=== PATIENT | male | born 1955 | race Caucasian/White ===

== ENCOUNTER 2021-08-18 14:33 | Inpatient (IN) ==
[2021-08-18 15:18] LABS: Basophils % 0.5 % (0.0-0.8); Eosinophils # 0.1 10*3/uL (0.0-0.87); Eosinophils % 1.2 % (0.00-10.9); Hematocrit 28.5 VOL% (42.0-52.0); Hemoglobin 8.4 GM/DL (14.0-18.0); Immature Granulocytes % 0.8 %; Immature Granulocytes Absolute 0.05 #; Lymphocytes # 0.8 10*3/uL (1.4-4.0); Lymphocytes % 13.2 % (21.2-54.2); Mean Corpuscular HGB Conc 29.5 GM/DL (32-36); Mean Corpuscular Volume 107.1 FL (87-102); Mean Platelet Volume 11.2 FL (9.6-12.0); Monocytes % 8.7 % (1.7-12.7); Neutrophils % 75.6 % (38.7-73.9); Platelet Count 312 T/CUMM (130-400); Red Blood Count 2.66 MC/CUMM (3.8-5.5); Red Cell Distribution Width 15.1 % (9.3-17.3)
[2021-08-18 15:55] LABS: Albumin 3.5 G/DL (3.4-5.0); Bilirubin,Total 0.4 MG/DL (0.20-1.00); Calcium 8.6 MG/DL (8.5-10.1); Osmolality,Calculated 311.1 MOS/KG (273-304); Total Protein 7.3 G/DL (6.4-8.2)
[2021-08-18] MEDS ORDERED: DEXTROSE 50% 25 GM/50 ML VIAL IV STA (16:00)
[2021-08-18] MEDS ORDERED: INSULIN REGULAR 100 UNIT/ML IV STA (16:00)
[2021-08-18] MEDS ORDERED: CALCIUM CHLORIDE 1,000 MG/10 ML SYRINGE IV STA (16:01)
[2021-08-18] MEDS ORDERED: SODIUM BICARBONATE 50 MEQ/50 ML VIAL IV STA (16:01)
[2021-08-18] MEDS ORDERED: DEXTROSE 50% 25 GM/50 ML SYRINGE IV ONE (16:05)
[2021-08-18] MEDS ORDERED: ONDANSETRON 4 MG/2 ML VIAL IV PRN (16:14)
[2021-08-18] MEDS ORDERED: ACETAMINOPHEN 325 MG TABLET PO PRN (16:14)
[2021-08-18 16:15] LABS: Arterial Base Excess iSTAT -9 MMOL/L (-2.5-2.5); Arterial Bicarbonate iSTAT 18.2 MMOL/L (20-26); Arterial O2 Saturation iSTAT 43 % (95-100); Arterial PCO2 iSTAT 45 MM HG (35-48); Arterial PO2 iSTAT 29 MM HG (80-95); Arterial Total CO2 iSTAT 20 MMO/L (23-27); Arterial pH iSTAT 7.211 (7.35-7.45)
[2021-08-18 16:15] LABS: Arterial Base Excess iSTAT -9 MMOL/L (-2.5-2.5); Arterial Bicarbonate iSTAT 17.9 MMOL/L (20-26); Arterial O2 Saturation iSTAT 51 % (95-100); Arterial PCO2 iSTAT 41 MM HG (35-48); Arterial PO2 iSTAT 32 MM HG (80-95); Arterial Total CO2 iSTAT 19 MMO/L (23-27); Arterial pH iSTAT 7.244 (7.35-7.45)
[2021-08-18 16:15] LABS: Arterial Base Excess iSTAT -10 MMOL/L (-2.5-2.5); Arterial Bicarbonate iSTAT 16.1 MMOL/L (20-26); Arterial O2 Saturation iSTAT 94 % (95-100); Arterial PCO2 iSTAT 37 MM HG (35-48); Arterial PO2 iSTAT 81 MM HG (80-95); Arterial Total CO2 iSTAT 17 MMO/L (23-27); Arterial pH iSTAT 7.243 (7.35-7.45)
[2021-08-18] MEDS ORDERED: SODIUM CHLORIDE 0.9% 1,000 ML IV STA (16:19)
[2021-08-18] MEDS ORDERED: SODIUM CHLORIDE 0.9% 1,000 ML IV SCH (16:30)
[2021-08-18] MEDS ORDERED: SODIUM POLYSTYRENE SULFATE 15 GM/60 ML BOTTLE PO SCH (16:30)
[2021-08-18] MEDS ORDERED: HALOPERIDOL 5 MG/ML AMP ONE (16:37)
[2021-08-18 16:47] LABS: Uric Acid 7.2 MG/DL (3.5-7.2)
[2021-08-18] MEDS ORDERED: HALOPERIDOL 5 MG/ML AMP IM STA (17:12)
[2021-08-18] MEDS: SODIUM POLYSTYRENE SULFATE 15 GM/60 ML BOTTLE PO SCH ×2 (17:31→22:16)
[2021-08-18] MEDS ORDERED: hydrALAZINE 20 MG/1 ML VIAL IV STA (17:35)
[2021-08-18] MEDS ORDERED: hydrALAZINE 20 MG/1 ML VIAL ONE (17:35)
[2021-08-18] MEDS: ENOXAPARIN 30 MG/0.3 ML SYRINGE SUBCUT SCH (17:39)
[2021-08-18 18:06] LABS: RBC,Urine <1 /HPF (0-4)
[2021-08-18 18:07] LABS: Bilirubin,Urine Negative (Negative); Blood, Urine Small mg/dL (Negative); Glucose,Urine (UA) Negative (Negative); Ketones,Urine Negative (Negative); Nitrite,Urine Negative (Negative); Protein,Urine 1+ mg/dL (Negative); Urine Appearance Clear (Clear); Urine Color Yellow (Yellow); Urine Urobilinogen 0.2 eU/dL (<2.0)
[2021-08-18] MEDS: SODIUM BICARB INJ 100 MEQ in DEXTROSE 5% 1,000 ML IV SCH (18:20)
[2021-08-18 18:43] LABS: Calcium 9.2 MG/DL (8.5-10.1); Osmolality,Calculated 315.6 MOS/KG (273-304)
[2021-08-18 18:48] LABS: Potassium 6.2 MMOL/L (3.5-5.1)
[2021-08-18] MEDS ORDERED: MAGNESIUM SULF RIDER 4 GM/100 ML PREMIX IV PRN (20:33)
[2021-08-18] MEDS ORDERED: SODIUM ZIRCONIUM CYCLOSILICATE 10 GM PACK PO SCH (21:00)
[2021-08-18] MEDS: MAGNESIUM SULF RIDER 2 GM/50 ML PREMIX IV PRN (22:17)
[2021-08-19] MEDS: MAGNESIUM SULF RIDER 2 GM/50 ML PREMIX IV PRN (00:17)
[2021-08-19] MEDS: SODIUM BICARB INJ 100 MEQ in DEXTROSE 5% 1,000 ML IV SCH (01:34)
[2021-08-19 03:59] LABS: Basophils % 0.4 % (0.0-0.8); Eosinophils # 0.1 10*3/uL (0.0-0.87); Eosinophils % 0.8 % (0.00-10.9); Hematocrit 24.7 VOL% (42.0-52.0); Hemoglobin 7.7 GM/DL (14.0-18.0); Immature Granulocytes % 0.4 %; Immature Granulocytes Absolute 0.03 #; Lymphocytes # 0.9 10*3/uL (1.4-4.0); Mean Corpuscular HGB Conc 31.2 GM/DL (32-36); Mean Corpuscular Volume 102.1 FL (87-102); Mean Platelet Volume 10.9 FL (9.6-12.0); Monocytes % 9.2 % (1.7-12.7); Neutrophils % 78.2 % (38.7-73.9); Platelet Count 281 T/CUMM (130-400); Red Blood Count 2.42 MC/CUMM (3.8-5.5); Red Cell Distribution Width 15.2 % (9.3-17.3); White Blood Count 7.7 T/CUMM (4-12)
[2021-08-19 04:24] LABS: Calcium 9.1 MG/DL (8.5-10.1); Osmolality,Calculated 314.7 MOS/KG (273-304); Potassium 4.8 MMOL/L (3.5-5.1)
[2021-08-19 04:36] LABS: Folate 6.4 NG/ML (5.38-24.0)
[2021-08-19] MEDS: SODIUM POLYSTYRENE SULFATE 15 GM/60 ML BOTTLE PO SCH (04:43)
[2021-08-19 04:54] LABS: Free T4 (Free Thyroxine) 0.84 NG/DL (0.76-1.46); Thyroid Stimulating Hormone 3.86 uIU/ml (0.358-3.74)
[2021-08-19] MEDS: DEXTROSE 5% NACL 0.45% 1,000 ML IV SCH ×2 (08:49→17:06)
[2021-08-19] MEDS: PANTOPRAZOLE 40 MG TABLET PO SCH (08:59)
[2021-08-19] MEDS: CARBIDOPA/LEVODOPA 10-100 MG TABLET PO SCH ×2 (14:24→21:50)
[2021-08-19] MEDS: ENOXAPARIN 30 MG/0.3 ML SYRINGE SUBCUT SCH (17:06)
[2021-08-20] MEDS: DEXTROSE 5% NACL 0.45% 1,000 ML IV SCH (02:00)
[2021-08-20 05:42] LABS: Basophils % 0.6 % (0.0-0.8); Eosinophils # 0.1 10*3/uL (0.0-0.87); Eosinophils % 1.7 % (0.00-10.9); Hematocrit 29.2 VOL% (42.0-52.0); Hemoglobin 9.3 GM/DL (14.0-18.0); Immature Granulocytes % 0.3 %; Immature Granulocytes Absolute 0.02 #; Lymphocytes # 1.1 10*3/uL (1.4-4.0); Lymphocytes % 16.5 % (21.2-54.2); Mean Corpuscular HGB Conc 31.8 GM/DL (32-36); Mean Platelet Volume 11.3 FL (9.6-12.0); Monocytes % 11.4 % (1.7-12.7); Neutrophils % 69.5 % (38.7-73.9); Platelet Count 278 T/CUMM (130-400); Red Blood Count 2.95 MC/CUMM (3.8-5.5); Red Cell Distribution Width 14.6 % (9.3-17.3); White Blood Count 6.6 T/CUMM (4-12)
[2021-08-20 05:57] LABS: Albumin 3.3 G/DL (3.4-5.0); Calcium 8.2 MG/DL (8.5-10.1); Potassium 3.6 MMOL/L (3.5-5.1)
[2021-08-20 05:59] LABS: Calcium 8.3 MG/DL (8.5-10.1); Osmolality,Calculated 301.1 MOS/KG (273-304); Potassium 3.4 MMOL/L (3.5-5.1)
[2021-08-20] MEDS: DEXT 5% LACT RING KCL 20 MEQ 20 MEQ/1,000 ML BAG IV SCH ×2 (08:50→17:36)
[2021-08-20] MEDS: CARBIDOPA/LEVODOPA 10-100 MG TABLET PO SCH ×3 (09:06→21:31)
[2021-08-20] MEDS: TAMSULOSIN 0.4 MG CAPSULE PO SCH (09:06)
[2021-08-20] MEDS: FENOFIBRATE 160 MG TABLET PO SCH (09:06)
[2021-08-20] MEDS: PANTOPRAZOLE 40 MG TABLET PO SCH (09:06)
[2021-08-20] MEDS: LEVOFLOXACIN 500 MG TABLET PO SCH (09:11)
[2021-08-20] MEDS: amLODIPine 5 MG TABLET PO SCH (14:52)
[2021-08-20] MEDS ORDERED: hydrALAZINE 20 MG/1 ML VIAL IV PRN (16:13)
[2021-08-20] MEDS: ENOXAPARIN 30 MG/0.3 ML SYRINGE SUBCUT SCH (17:35)
[2021-08-21] MEDS: DEXT 5% LACT RING KCL 20 MEQ 20 MEQ/1,000 ML BAG IV SCH ×2 (01:40→10:23)
[2021-08-21 07:12] LABS: Albumin 3.5 G/DL (3.4-5.0); Osmolality,Calculated 297.3 MOS/KG (273-304); Potassium 3.7 MMOL/L (3.5-5.1)
[2021-08-21] MEDS: PANTOPRAZOLE 40 MG TABLET PO SCH (08:04)
[2021-08-21] MEDS: amLODIPine 5 MG TABLET PO SCH ×2 (08:04→10:28)
[2021-08-21] MEDS: TAMSULOSIN 0.4 MG CAPSULE PO SCH (08:04)
[2021-08-21] MEDS: CARBIDOPA/LEVODOPA 10-100 MG TABLET PO SCH ×3 (08:04→20:50)
[2021-08-21] MEDS: FENOFIBRATE 160 MG TABLET PO SCH (08:05)
[2021-08-21] MEDS: MEMANTINE 10 MG TABLET PO SCH ×2 (10:28→20:50)
[2021-08-21] MEDS: hydrALAZINE 25 MG TABLET PO SCH ×3 (10:28→20:50)
[2021-08-21] MEDS: VENLAFAXINE 100 MG TABLET PO SCH (16:53)
[2021-08-21] MEDS: ENOXAPARIN 30 MG/0.3 ML SYRINGE SUBCUT SCH (16:54)
[2021-08-21] MEDS: SODIUM BICARB INJ 50 MEQ in DEXTROSE 5% NACL 0.45% 1,000 ML IV SCH (19:23)
[2021-08-21] MEDS: MIRTAZAPINE 30 MG TABLET PO SCH (20:50)
[2021-08-22 06:51] LABS: Albumin 3.5 G/DL (3.4-5.0); Osmolality,Calculated 291.4 MOS/KG (273-304); Potassium 3.8 MMOL/L (3.5-5.1)
[2021-08-22] MEDS: SODIUM BICARB INJ 50 MEQ in DEXTROSE 5% NACL 0.45% 1,000 ML IV SCH ×2 (08:57→21:01)
[2021-08-22] MEDS: TAMSULOSIN 0.4 MG CAPSULE PO SCH (08:58)
[2021-08-22] MEDS: LEVOFLOXACIN 500 MG TABLET PO SCH (08:58)
[2021-08-22] MEDS: CARBIDOPA/LEVODOPA 10-100 MG TABLET PO SCH ×3 (08:58→21:02)
[2021-08-22] MEDS: FENOFIBRATE 160 MG TABLET PO SCH (08:58)
[2021-08-22] MEDS: amLODIPine 5 MG TABLET PO SCH (08:58)
[2021-08-22] MEDS: PANTOPRAZOLE 40 MG TABLET PO SCH (08:58)
[2021-08-22] MEDS: hydrALAZINE 25 MG TABLET PO SCH ×3 (08:58→21:03)
[2021-08-22] MEDS: MEMANTINE 10 MG TABLET PO SCH ×2 (08:58→21:03)
[2021-08-22] MEDS: carvediloL 3.125 MG TABLET PO SCH ×2 (09:00→21:03)
[2021-08-22] MEDS: VENLAFAXINE 100 MG TABLET PO SCH (09:00)
[2021-08-22] MEDS: ENOXAPARIN 30 MG/0.3 ML SYRINGE SUBCUT SCH (16:54)
[2021-08-22] MEDS: MIRTAZAPINE 30 MG TABLET PO SCH (21:02)
[2021-08-23 07:16] LABS: Basophils # 0.1 10*3/uL (0.0-0.2); Basophils % 0.6 % (0.0-0.8); Eosinophils # 0.5 10*3/uL (0.0-0.87); Eosinophils % 6.4 % (0.00-10.9); Hematocrit 29.5 VOL% (42.0-52.0); Hemoglobin 9.6 GM/DL (14.0-18.0); Immature Granulocytes % 0.5 %; Immature Granulocytes Absolute 0.04 #; Lymphocytes # 1.2 10*3/uL (1.4-4.0); Lymphocytes % 15.4 % (21.2-54.2); Mean Corpuscular HGB Conc 32.5 GM/DL (32-36); Mean Corpuscular Volume 97.4 FL (87-102); Mean Platelet Volume 11.6 FL (9.6-12.0); Monocytes % 8.1 % (1.7-12.7); Platelet Count 340 T/CUMM (130-400); Red Blood Count 3.03 MC/CUMM (3.8-5.5); Red Cell Distribution Width 14.1 % (9.3-17.3); White Blood Count 7.9 T/CUMM (4-12)
[2021-08-23 07:27] LABS: Calcium 8.8 MG/DL (8.5-10.1); Osmolality,Calculated 295.1 MOS/KG (273-304); Potassium 3.1 MMOL/L (3.5-5.1)
[2021-08-23] MEDS ORDERED: MAGNESIUM SULF RIDER 2 GM/50 ML PREMIX IV PRN (07:48)
[2021-08-23] MEDS ORDERED: POTASSIUM CHLORIDE 20 MEQ TABLET PO PRN (07:48)
[2021-08-23] MEDS ORDERED: MAGNESIUM SULF RIDER 4 GM/100 ML PREMIX IV PRN (07:48)
[2021-08-23] MEDS: SODIUM BICARB INJ 50 MEQ in DEXTROSE 5% NACL 0.45% 1,000 ML IV SCH (08:47)
[2021-08-23] MEDS: TAMSULOSIN 0.4 MG CAPSULE PO SCH (08:48)
[2021-08-23] MEDS: amLODIPine 5 MG TABLET PO SCH (08:48)
[2021-08-23] MEDS: carvediloL 3.125 MG TABLET PO SCH ×2 (08:48→21:58)
[2021-08-23] MEDS: hydrALAZINE 25 MG TABLET PO SCH ×3 (08:48→21:58)
[2021-08-23] MEDS: CARBIDOPA/LEVODOPA 10-100 MG TABLET PO SCH ×3 (08:48→21:58)
[2021-08-23] MEDS: VENLAFAXINE 100 MG TABLET PO SCH (08:48)
[2021-08-23] MEDS: PANTOPRAZOLE 40 MG TABLET PO SCH (08:48)
[2021-08-23] MEDS: FENOFIBRATE 160 MG TABLET PO SCH (08:49)
[2021-08-23] MEDS: MEMANTINE 10 MG TABLET PO SCH ×2 (08:49→21:58)
[2021-08-23] MEDS: DEXT 5% LACT RING KCL 20 MEQ 20 MEQ/1,000 ML BAG IV SCH (09:31)
[2021-08-23] MEDS: DEXTROSE 5% NACL 0.45% 1,000 ML IV SCH (13:07)
[2021-08-23] MEDS: ENOXAPARIN 30 MG/0.3 ML SYRINGE SUBCUT SCH (16:00)
[2021-08-23] MEDS: MAGNESIUM CHLORIDE 64 MG TABLET PO SCH (21:58)
[2021-08-23] MEDS: MELATONIN 3 MG TABLET PO PRN (21:58)
[2021-08-23] MEDS: MIRTAZAPINE 30 MG TABLET PO SCH (21:58)
[2021-08-23] MEDS: POTASSIUM CHLORIDE 20 MEQ TABLET PO SCH (21:59)
[2021-08-24] MEDS: DEXTROSE 5% NACL 0.45% 1,000 ML IV SCH ×2 (01:42→15:52)
[2021-08-24 05:12] LABS: Basophils # 0.1 10*3/uL (0.0-0.2); Basophils % 0.8 % (0.0-0.8); Eosinophils # 0.5 10*3/uL (0.0-0.87); Eosinophils % 5.8 % (0.00-10.9); Hemoglobin 9.5 GM/DL (14.0-18.0); Immature Granulocytes % 0.5 %; Immature Granulocytes Absolute 0.04 #; Lymphocytes # 1.5 10*3/uL (1.4-4.0); Lymphocytes % 19.4 % (21.2-54.2); Mean Corpuscular HGB Conc 32.8 GM/DL (32-36); Mean Corpuscular Volume 97.6 FL (87-102); Mean Platelet Volume 11.4 FL (9.6-12.0); Monocytes % 8.7 % (1.7-12.7); Neutrophils % 64.8 % (38.7-73.9); Platelet Count 368 T/CUMM (130-400); Red Blood Count 2.97 MC/CUMM (3.8-5.5); White Blood Count 7.8 T/CUMM (4-12)
[2021-08-24 05:34] LABS: Calcium 9.2 MG/DL (8.5-10.1); Osmolality,Calculated 291.5 MOS/KG (273-304); Potassium 3.9 MMOL/L (3.5-5.1)
[2021-08-24] MEDS: carvediloL 3.125 MG TABLET PO SCH ×2 (08:00→21:24)
[2021-08-24] MEDS: MEMANTINE 10 MG TABLET PO SCH ×2 (08:00→21:24)
[2021-08-24] MEDS: LEVOFLOXACIN 500 MG TABLET PO SCH (08:00)
[2021-08-24] MEDS: hydrALAZINE 25 MG TABLET PO SCH ×3 (08:00→21:24)
[2021-08-24] MEDS: TAMSULOSIN 0.4 MG CAPSULE PO SCH ×2 (08:00→21:26)
[2021-08-24] MEDS: POTASSIUM CHLORIDE 20 MEQ TABLET PO SCH (08:00)
[2021-08-24] MEDS: CARBIDOPA/LEVODOPA 10-100 MG TABLET PO SCH ×3 (08:01→21:24)
[2021-08-24] MEDS: MAGNESIUM CHLORIDE 64 MG TABLET PO SCH ×2 (08:01→21:24)
[2021-08-24] MEDS: amLODIPine 5 MG TABLET PO SCH (08:01)
[2021-08-24] MEDS: FENOFIBRATE 160 MG TABLET PO SCH (08:01)
[2021-08-24] MEDS: VENLAFAXINE 100 MG TABLET PO SCH (08:01)
[2021-08-24] MEDS: PANTOPRAZOLE 40 MG TABLET PO SCH (11:06)
[2021-08-24] MEDS: ENOXAPARIN 30 MG/0.3 ML SYRINGE SUBCUT SCH (16:05)
[2021-08-24] MEDS: MELATONIN 3 MG TABLET PO PRN (21:24)
[2021-08-24] MEDS: MIRTAZAPINE 30 MG TABLET PO SCH (21:24)
[2021-08-25] MEDS: DEXTROSE 5% NACL 0.45% 1,000 ML IV SCH (03:50)
[2021-08-25 08:00] VITALS: BP 123/78
[2021-08-25] MEDS: amLODIPine 5 MG TABLET PO SCH (08:50)
[2021-08-25] MEDS: TAMSULOSIN 0.4 MG CAPSULE PO SCH (08:50)
[2021-08-25] MEDS: VENLAFAXINE 100 MG TABLET PO SCH (08:50)
[2021-08-25] MEDS: CARBIDOPA/LEVODOPA 10-100 MG TABLET PO SCH (08:50)
[2021-08-25] MEDS: MAGNESIUM CHLORIDE 64 MG TABLET PO SCH (08:50)
[2021-08-25] MEDS: carvediloL 3.125 MG TABLET PO SCH (08:51)
[2021-08-25] MEDS: FENOFIBRATE 160 MG TABLET PO SCH (08:51)
[2021-08-25] MEDS: MEMANTINE 10 MG TABLET PO SCH (08:51)
[2021-08-25] MEDS: hydrALAZINE 25 MG TABLET PO SCH (08:51)
[2021-08-25] MEDS: PANTOPRAZOLE 40 MG TABLET PO SCH (08:53)
[2021-08-25] MEDS ORDERED: POTASSIUM CHLORIDE 20 MEQ TABLET PO SCH (09:00)
[2021-08-25] MEDS ORDERED: NICOTINE 21 MG/24 HR PATCH TRANSDERM SCH (09:00)
== END 2021-08-25 12:55 | disposition home health service (06) | DRG 682 ==
LOC: N.ED 14:33 → SUATTDRO 16:14 → N.ICU 16:14 → N.3E 08-20 14:26
PROVIDERS: ADMIT Family Medicine; ATTEND Internal Medicine